=== PATIENT | female | born 1960 | race Caucasian/White ===

== ENCOUNTER 2018-04-10 22:40 | Emergency (ER) | payer OTHER ==
[~2018-04-10] VITALS: Ht 157.5 cm; Wt 68.0 kg
[~2018-04-10 22:40] MED LIST: OMEP40CA33 PO; PARO12.520 PO
[2018-04-10 22:47] VITALS: BP_SYST 161
[2018-04-10 22:59] LABS: BILIRUBIN,URINE NEGATIVE (NEGATIVE); BLOOD, URINE 3+ (NEGATIVE); CLARITY/URINE CLEAR (CLEAR); COLOR,URINE YELLOW (YELLOW); GLUCOSE,URINE NEGATIVE (NEGATIVE); KETONES,URINE TRACE (NEGATIVE); LEUKOCYTE ESTERASE ,URINE 3+ (NEGATIVE); NITRITE, URINE POSITIVE (NEGATIVE); PROTEIN URINE 2+ (NEGATIVE); UROBILINOGEN,URINE 0.2 (0.2-1.0)
[2018-04-10 23:10] LABS: BACTERIA,URINE MANY /HPF (None Seen); RBC,URINE 20-50 /HPF (0-3); WBC,URINE 20-50 /HPF (0-3)
[2018-04-10 23:12] LABS: MUCUS,URINE 1+ /LPF (None Seen)
[2018-04-10] MEDS ORDERED: NITROFURANTOIN MONOHYD/M-CRYST 100 MG CAPSULE PO ONE (23:45)
[2018-04-10] MEDS ORDERED: PHENAZOPYRIDINE HCL 100 MG TABLET PO ONE (23:45)
[2018-04-10 23:56] VITALS: BP_SYST 149
== END 2018-04-10 23:56 | disposition home or self-care (01) ==
LOC: SED 22:40
DX: N39.0 Urinary tract infection, site not specified (principal); I10 Essential (primary) hypertension; J45.909 Unspecified asthma, uncomplicated; K21.9 Gastro-esophageal reflux disease without esophagitis; F17.210 Nicotine dependence, cigarettes, uncomplicated; Z88.5 Allergy status to narcotic agent
CPT/HCPCS: 81000-TC; 87086; 99284

== ENCOUNTER 2018-11-11 19:28 | Emergency (ER) | payer OTHER ==
[~2018-11-11] VITALS: Ht 157.5 cm; Wt 77.1 kg
[2018-11-11 19:30] VITALS: BP_SYST 149
--- NOTE | 2018-11-11 19:40 | NUR ---
Pt c/o pain and swelling to fingers of RHA. Pt states that pain also shoots to her RFA. Pt arrives with an Ortho-glass thumb spica splint to RUE s/p wrist sx this past . No swelling or discoloration noted to fingers, able to wiggle fingers without difficulty, cap refil < 3 sec to nail beds. Pt states that she removed wrapping covering the splint that helped to relieve some of the pain. Addendum: 11/12/18 at 07 by RAYMON Amendment undone in EDM - 11/12/18 at 710 by RAYMON Pt smells of ETOH.
--- NOTE | 2018-11-11 19:40 | NUR ---
Pt smells of ETOH.
--- NOTE | 2018-11-11 19:40 | NUR ---
Patient to ER bed 1 to gown for evaluation. Side rails up. Report given to MILANA RIVERA.
--- NOTE | 2018-11-11 20:18 | NUR ---
Juan Ramon Espinoza, PAC at bedside to assess pt.
--- NOTE | 2018-11-11 20:30 | NUR ---
Pt not in bed and no where to be found. Pt eloped.
== END 2018-11-11 20:30 | disposition home or self-care (01) ==
LOC: SED 19:28
DX: R03.0 Elevated blood-pressure reading, without diagnosis of hypertension (principal); J45.909 Unspecified asthma, uncomplicated; Z88.5 Allergy status to narcotic agent; Z79.899 Other long term (current) drug therapy
CPT/HCPCS: 99281